=== PATIENT | male | born 1940 | race Caucasian/White ===

== ENCOUNTER 2022-05-07 19:56 | Emergency (ER) | payer MEDICARE, SELFPAY ==
[2022-05-07 20:15] VITALS: BP 127/50; PULSE 60; O2SAT 99
[2022-05-07 20:18] VITALS: BP 123/47; PULSE 58; RESP 18; TEMP 36.4; O2SAT 99; BMI 21.9
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
[2022-05-07 20:52] LABS: Appearance Urine Clear; Color Urine Yellow; Glucose Urine UA Negative (Negative); Leukocyte Esterase Urine Negative (Negative); Nitrite Urine Negative (Negative); PH 5.5 (5.0-9.0); Urine Blood Negative (Negative); Urine Ketones Trace mg/dL (Negative); Urine Protein Trace mg/dL (Neg-Trace)
[2022-05-07 22:39] LABS: Hemoglobin 12.4 g/dl (14.0-18.0); PLT CLUMP 1; SCAN SMEAR FLAG 1
[2022-05-07 22:41] LABS: Basophils Percent Auto 0.5 % (0-2); Eosinophils Absolute Auto 0.1 X10*3/uL (0.0-0.4); Eosinophils Percent Auto 2.1 % (0-4); Imm Gran Abs Auto 0.01 X10*3/uL (0.00-0.03); Imm Gran Pct Auto 0.2 % (0.0-0.4); Lymphocytes Absolute Auto 1.9 X10*3/uL (1.2-4.9); MANUAL DIFF FLAG SCAN; Mean Corpuscular HGB Conc 33.5 g/dl (31.0-36.0); Mean Corpuscular Hemoglobin 31.6 pg (27.0-33.0); Mean Corpuscular Volume 94.1 fL (80.0-98.0); Mean Platelet Volume 9.9 fL (9.4-12.4); Monocytes Absolute Auto 0.8 X10*3/uL (0.1-1.2); Monocytes Percent Auto 13.7 % (2-11); Neutrophils Absolute Auto 2.8 x10*3/uL (2.0-8.3); Neutrophils Percent Auto 49.5 % (45-73); Red Blood Count 3.93 X10*6/uL (4.60-5.80); Red Cell Distribution Width 13.1 % (11.0-16.0)
[2022-05-07 22:49] LABS: Platelet Count 143 X10*3/uL (160-400); White Blood Count 5.7 X10*3/uL (4.8-10.8)
[2022-05-07 22:52] LABS: Anion Gap 16 (12-20); Blood Urea Nitrogen 15 mg/dL (9-16); Calcium 9.1 mg/dL (8.4-10.2); Carbon Dioxide 27 mmol/L (22-29); Chloride 105 mmol/L (96-108); Estimated Glomerular Filt Rate > 60; Glucose Random 133 mg/dL (60-115); Potassium 3.8 mmol/L (3.3-5.1); Sodium 144 mmol/L (135-145)
[2022-05-07 22:59] LABS: SLIDE REVIEW VERIFIED
[2022-05-07 23:57] VITALS: BP 156/80; PULSE 72; RESP 16; TEMP 36.6; O2SAT 98
--- NOTE | 2022-05-07 23:58 | PC.NURSE ---
patient ate 2 ice cream to eat ,sitter at bedside .
[2022-05-08] MEDS: traZODone HCL 25 MG HALFTAB PO (00:10)
[2022-05-08] MEDS: Melatonin 3 MG TABLET PO (00:10)
--- NOTE | 2022-05-08 04:55 | PC.NURSE ---
Patient was transferred to ED POD per charge nurse order, patient was in wheel chair, unsteady gait and high fall risk, patient was able to pivot only to bed, patient is confused and demented, patient is on one to one observation since he arrived but no paper work initiated, one to one check initiated at 0445, decorating supervisor notified/requested sitter/sitter is with patient, no report and paper work received during patient transfer, per provider's note patient is a case management case, vital signs assessed WNL except BP 170/57, patient is calm and quiet at this time, will continue to monitor.
--- NOTE | 2022-05-08 05:48 | PC.NURSE ---
Called pt facility to attempt to obtain paper work, no answer at this time.
[2022-05-08 05:59] VITALS: BP 170/57; PULSE 50; RESP 14; TEMP 36.6; O2SAT 97
--- NOTE | 2022-05-08 08:39 | PC.NURSE ---
This RN attempted to call [facility] to receive more information about patient. No answer.
[2022-05-08 08:52] VITALS: BP 159/62; PULSE 53; RESP 16; TEMP 36.8; O2SAT 98
--- NOTE | 2022-05-08 08:55 | PC.NURSE ---
Pharmacy called about medications not in pyxis. Awaitring medications
--- NOTE | 2022-05-08 09:09 | PC.NURSE ---
Dr. Saavedra notified about patients HR and BP. Instructed to give 25 mg of metoprolol and not full 50 mg
--- NOTE | 2022-05-08 09:54 | PC.NURSE ---
Patient refused medications from this RN and RN Lul. Dr. Saavedra made aware.
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
[2022-05-08] MEDS: Metoprolol Succinate ER 50 MG TAB.ER.24H PO (12:19)
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
--- NOTE | 2022-05-08 13:04 | PC.NURSE ---
Medication given by LISA Flores.
[2022-05-08 15:13] LABS: Alanine Aminotransferase 35 U/L (0-40); Alkaline Phosphatase 55 U/L (39-117); Aspartate Amino Transferase 35 U/L (5-37); Bilirubin Direct 0.2 mg/dL (0.0-0.5); Bilirubin Total 0.4 mg/dL (0.0-1.0); Total Protein 6.8 g/dL (6.5-8.0)
--- NOTE | 2022-05-08 15:57 | MHC.CM.ED ---
Addendum entered by Lluvia Houston 05/08/22 16:02: CM will reach out to [facility] tomorrow regarding transport back to facility. CM to follow for d/c needs. Original Note: Psych consult completed. Med adjustments made; starting Trileptal and seroquel. Per Sandra demo coordinator, may return to [facility] tomorrow 05/09 if no aggression. CM to follow for d/c needs.
[2022-05-08] MEDS: Atorvastatin Calcium 80 MG TABLET PO (19:56)
[2022-05-08] MEDS: QUEtiapine Fumarate 25 MG TABLET PO (19:56)
[2022-05-08] MEDS: OXcarbazepine 150 MG TABLET PO (19:56)
--- NOTE | 2022-05-09 05:16 | PC.NURSE ---
Patient slept through the night, no distress observed/reported, gait unsteady, confused, behavior non concerning, patient is on one to one observation, medication compliant takes crushed meds with apple sauce, may crush order in placed per Snadra Mullins, patient is a case management case, pending disposition, patient is on one to one observation for safety check, will continue to monitor.
[2022-05-09 05:48] VITALS: RESP 16
--- NOTE | 2022-05-09 05:48 | PC.NURSE ---
pt refused vitals. RN aware.
[2022-05-09 06:09] LABS: COVID-19 Test Negative (Negative)
--- NOTE | 2022-05-09 07:15 | PC.NURSE ---
patient appears to remain asleep at present respirations are even and unlabored patient appears in no distress
[2022-05-09] MEDS: Metoprolol Succinate ER 50 MG TAB.ER.24H PO (10:11)
[2022-05-09] MEDS: Sertraline HCL 50 MG TABLET PO (10:11)
[2022-05-09] MEDS: OXcarbazepine 150 MG TABLET PO (10:11)
[2022-05-09] MEDS: Rivaroxaban 10 MG TABLET PO (10:11)
--- NOTE | 2022-05-09 10:22 | MHC.CM.ED ---
Patient remains in ER BH pod. Patient had medication changes on 05/08. Per nursing documentation, patient did not have any behavioral issues overnight. T/W spoke with Bobo at [facility]. Patient can return to their facility. T/W spoke with patient's , Sravani, via telephone at [phone]. She is agreeable to patient leaving ER at noon. [facility] booked for 12pm. Patient, /HCP Geraldine Lassiter RN and Mike MAX aware. Continue to monitor for d/c needs.
--- NOTE | 2022-05-09 15:16 | MHC.CM.ED ---
Patient remains in ER. BLS transportation is dealyed at this time. Patient's , Sravani, made aware. Sravani concerned about changes in medications not be relayed to [facility]. T/W spoke with [facility]. Change in medications will need to be called to [facility]. WINTER Mckeon aware and called these RX into [facility]. Sravani aware. Continue to monitor for d/c needs.
[2022-05-09] MEDS: QUEtiapine Fumarate 25 MG TABLET PO (16:22)
== END 2022-05-09 17:09 ==
PROVIDERS: Internal Medicine; Nurse Practitioner Family; Social Worker; Emergency Provider Emergency Medicine; PCP Internal Medicine
DX: F03.91 Unspecified dementia, unspecified severity, with behavioral disturbance (principal); F02.81 Dementia in other diseases classified elsewhere, unspecified severity, with behavioral disturbance; R41.82 Altered mental status, unspecified; Z20.822 Contact with and (suspected) exposure to COVID-19; Z79.899 Other long term (current) drug therapy
CPT/HCPCS: 36415; 80048; 80076; 81003; 85025; 87635; 99283; 99285